=== PATIENT | male | born 1980 | race Caucasian/White ===

== ENCOUNTER → 2016-12-18 | Outpatient (CLI) | payer MEDICARE, OTHER ==
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
== END | disposition home or self-care (01) ==
LOC: RADMRIMAIN 19:11
PROVIDERS: ATTEND Psychiatry & Neurology Pain Medicine
DX: M54.2 Cervicalgia (principal); R51 Headache
CPT/HCPCS: 70551; 72141

== ENCOUNTER → 2018-03-08 | Outpatient (CLI) | payer MEDICARE, OTHER ==
--- NOTE | 2018-03-08 22:58 | MR ---
EXAMINATION TYPE: MR brain wo/w con DATE OF EXAM: 03/08/2018 COMPARISON: Prior MRI brain December 18, 2016. HISTORY: Headaches per order. History of left-sided weakness and right-sided numbness are patient. TECHNIQUE: Multiplanar, multisequence images of the brain and brainstem is performed without and with IV contras t, utilizing 7.5 mL intravenous Gadavist . FINDINGS: Diffusion weighted images demonstrate no evidence of a recent infarct or other diffusion ab normality. There is no extra-axial fluid collection or significant white matter signal abnormality. The ventricular system and cisternal spaces are normal in size and appearance. The brain volume is age appropriate. Midline structures demonstrate normal morphology. The craniocervical junction appears within normal limits. Post contrast images demonstrate no abnormal enhancement. The dural venous sinuses appear pa tent. A few small mucous retention cysts or polyps are redemonstrated inferiorly in right maxillary s inus otherwise the paranasal sinuses are clear. The globes are intact bilaterally. IMPRESSION: No suspicious new findings seen to account for patient's symptoms. No significant change from prior MRI.
== END | disposition home or self-care (01) ==
LOC: RADMRIMAIN 21:43
PROVIDERS: ATTEND Psychiatry & Neurology Pain Medicine
DX: R51 Headache (principal)
CPT/HCPCS: 70553; A9581